=== PATIENT | female | born 1975 | race Caucasian/White ===

== ENCOUNTER 2023-05-17 18:16 | Emergency (ER) | payer MEDICAID, SELFPAY ==
--- NOTE | 2023-05-17 18:18 | ED.SKABFB ---
HPI - Skin/Abscess/Foreign Bdy General Chief complaint: Skin/Abscess/Foreign Body Stated complaint: RASH/BACK PAIN Time Seen by Provider: 05/17/23 18:17 Source: patient Mode of arrival: ambulatory Limitations: no limitations History of Present Illness HPI narrative: Yeny is a 47-year-old female patient presenting to the clinic today with complaints of a rash in back pain times. She reports Related Data Allergies Allergy/AdvReac Type Severity Reaction Status Date / Time No Known Allergies Allergy Verified 05/17/23 18:22 Review of Systems Review of Systems: Pertinent positives per HPI. Patient denies any fever, chills, headache, visual changes, dizziness, cough, runny nose, sore throat, shortness of breath, chest pain, palpitations, nausea, vomiting, diarrhea, constipation, abdominal pain, or any urinary issues. PMFSH Comments At the time of my signature, I reviewed and agree with the nursing past medical, surgical, social, and family history. There is no relevant family history pertinent to the patient complaint. Course Course Emergency Course: Portions of this record may have been created with voice recognition software. Level of Care: Express Care Visit Vital Signs Vital signs: Vital signs reviewed MDM - Skin/Abscess/Foreign Bdy MDM Narrative Medical decision making narrative: At the time of visit patient is resting comfortably on exam table. I suspect patient has shingles. Supportive measures were discussed with the patient she voiced understanding discharge instructions and agrees to treatment plan. Prescription for acyclovir was sent to the pharmacy. Discussed use of lidocaine patches to help alleviate pain as well as taking Tylenol/Motrin Differential Diagnosis Differential diagnosis: Likely abscess of skin or subcutaneous tissue, urticaria, cellulitis, insect bites, impetigo and contact dermatitis Discharge Plan Discharge Clinical Impression: Herpes zoster Qualifiers: Herpes zoster complications: without complications Qualified Code(s): B02.9 - Zoster without complications Patient Disposition: Home, Self-Care Condition: Stable Instructions: Antibiotic Form, Shingles (ED) Additional Instructions: May apply lidocaine patch to the affected area to help alleviate pain May take Tylenol/Motrin as needed for pain Increase fluids and stay well hydrated Take acyclovir as prescribed Follow-up with your PCP in 3-5 days if symptoms persist Go to the emergency room if you develop worsening of symptoms, high fever not controlled by Tylenol Motrin, weakness, lethargy, confusion, increase in pain, chest pain, shortness of breath, Prescriptions: New acyclovir 800 mg tablet 800 mg PO Q4H 7 Days Qty: 42 0RF Rx Instructions: while awake; give 5 doses in 24 hours Follow-up/Referrals: UNKNOWN,DOCTOR [Non-Staff] - Time of Disposition: 18:27 Quality NIHSS Nursing Documentation ED NIHSS nursing documentation: reviewed/agree
[2023-05-17 18:26] VITALS: BP 112/91; PULSE 106; RESP 16; TEMP 36.8; O2SAT 100
[2023-05-17 18:36] VITALS: BP 112/91; PULSE 106; RESP 16; TEMP 36.8; O2SAT 100
== END 2023-05-17 18:31 | disposition home or self-care (01) ==
PROVIDERS: Emergency Provider Nurse Practitioner Family
DX: B02.9 Zoster without complications (principal)
CPT/HCPCS: 99213; G0463